=== PATIENT | male | born 1990 | race Caucasian/White ===

== ENCOUNTER → 2019-02-03 | Outpatient (CLI) | payer OTHER ==
[~2019-02-03] MED LIST: AMPH20TA18 PO; BARIUM SULFATE 176 GM BTL PO ONE; DIATRIZOATE MEGL/DIATRIZOA SOD 120 ML SOLN PO ONE; IBUP-1618 PO; LEVO75TA68 PO; NAPR-1043 PO; ONDA4TAB PO; OXYC-865 PO; PER PO; PHEN-578 PO
--- NOTE | 2019-02-03 14:58 | RADIOLOGY IMAGING REPORT ---
FACILITY: [facility] [place]IENT NAME: Popeye Cardenas : 1990 MR: [id number] V: [id number] EXAM DATE: ORDERING PHYSICIAN: EFRA LEDEZMA TECHNOLOGIST: Location[place] [facility] [place] Patient: Popeye Cardenas : 1990 Visit/Account:[id number] Date of Sevice: 02/03/2019 Exam type: ESOPHAGRAM History: Dysphagia, possible foreign body Comparison: None. Findings: Fluoroscopy was used for the purposes of an esophagram. 1.1 minutes of fluoroscopy time was used for total DAP of 801.96 microGy/m2. There is no visualized esophageal foreign body or perforation. Esophageal motility was normal. No e vidence for aspiration. No evidence for stricture, mass or hernia. Patient was able swallow an 11 m m barium tablet without incident. IMPRESSION: 1. Unremarkable esophagram. No evidence for foreign body or perforation. Report Dictated By: Adelso Smalls MD at 02/03/2019 2:46 PM Report E-Signed By: Adelso Smalls MD at 02/03/2019 2:50 PM WSN:[email or web address]
== END ==
LOC: RAD 13:14
PROVIDERS: ATTEND Nurse Practitioner Family
DX: S10.15XA Superficial foreign body of throat, initial encounter (principal)
CPT/HCPCS: 74220